=== PATIENT | female | born 1965 | race American Indian/Alaskan Native ===

== ENCOUNTER 2018-12-13 11:39 | Outpatient (CLI) | payer MEDICAID | END 2018-12-13 11:40 | disposition home or self-care (01) | LOC: C.MAMMO 11:39 | DX: Z12.39 Encounter for other screening for malignant neoplasm of breast (principal) ==

== ENCOUNTER 2019-01-05 10:48 | Outpatient (CLI) | payer MEDICAID | END 2019-01-05 10:49 | disposition home or self-care (01) | LOC: C.MAMMO 10:48 ==